=== PATIENT | female | born 1980 | race Caucasian/White ===

== ENCOUNTER 2021-10-18 06:51 | Emergency (ER) | payer OTHER, MEDICAID, SELFPAY ==
[2021-10-18 07:01] VITALS: BP 146/105; PULSE 106; O2SAT 98
[2021-10-18 07:08] VITALS: BP 146/109; PULSE 107; RESP 18; TEMP 36.4; O2SAT 98
--- NOTE | 2021-10-18 07:08 | ED_ITS ---
HPI - General Adult General Chief complaint: Upper Respiratory Symptoms Stated complaint: headache, coughing, sinus, vomiting Time Seen by Provider: 10/18/21 06:55 History of Present Illness HPI narrative: 41-year-old woman with history of hypertension, fibromyalgia prior gastric sleeve surgery in July of this year presents with upper respiratory symptoms. Symptoms started essentially yesterday with sinus fullness wondering if she was perhaps developing a sinus infection. She done developed fever, headache and a bit of diarrhea and last night began vomiting. Her daughter has similar symptoms. She does not report cough, chest pain, significant dyspnea. She is significantly fatigued with myalgias and overall body aches. She has not yet had COVID but states she is vaccinated. Requesting a COVID test Related Data Previous Rx's Medication Instructions Recorded nirmatrelvir 150 mg x 2-ritonavir See Rx Instructions .ROUTE 10/18/21 100 mg tablet (EUA) (Paxlovid .COMPLEX #30 tab (EUA)) ondansetron 4 mg disintegrating 4 mg PO Q8H PRN #14 tab 10/18/21 tablet Allergies Allergy/AdvReac Type Severity Reaction Status Date / Time gabapentin Allergy Verified 10/18/21 07:06 Latex, Natural Rubber Allergy Verified 10/18/21 07:06 Penicillins Allergy Verified 10/18/21 07:06 pregabalin [From Lyrica] Allergy Verified 10/18/21 07:06 Review of Systems Review of Systems Narrative: Remainder of complete review of systems is otherwise unremarkable except for th at included in the HPI. Patient History Medical History (Updated 10/18/21 @ 07:49 by Jaki Hoyt MD) Fibromyalgia Hypertension Social History Smoking Status: Current some day smoker Exam Initial Vital Signs Initial Vital Signs: Vital Signs Pulse Rate 106 H 10/18/21 07:01 Blood Pressure 146/105 H 10/18/21 07:01 Pulse Oximetry 98 10/18/21 07:01 General: Fatigued appearing with circles under her eyes but Able to give a complete and coherent history. Well-nourished well-developed HEENT: Moist mucous membranes, normal sclera with reactive pupils, Respiratory: Lungs are clear to auscultation, no wheezing no rales no rhonchi. Full and symmetrical air movement Cardiac: Regular rate and rhythm no murmurs no bruits Abdomen: Soft, mild tenderness in epigastrium, good bowel tones, no flank pain Skin: Slightly pale but otherwise Warm and dry, no rashes Neurologic: Grossly neurologically intact with no obvious asymmetries or abnormalities Extremities: No trauma, well perfused Psych: Cooperative, appropriate insight and affect Course Orders Ordered: ED Orders 10/18/21 07:10 COVID19 -Nasal RAPID/Pre-Proc Stat Discontinued Medications Ondansetron HCl (Ondansetron 4 Mg Odt) 4 mg SL NOW ONE Stop: 10/18/21 07:08 Last Admin: 10/18/21 07:14 Dose: 4 mg Documented by: VIRY Vital Signs Vital signs: Vital Signs - 8 hr 10/18/21 07:01 10/18/21 07:08 10/18/21 07:30 Temperature 97.5 F L Pulse Rate 106 H 107 H 99 H Respiratory Rate 18 Blood Pressure 146/105 H 146/109 H Pulse Oximetry 98 98 97 Medical Decision Making Lab Data Labs: Lab Results 10/18/21 Range/Units 07:10 SARS-CoV-2 (PCR) Positive H (Negative) MDM Narrative Medical decision making narrative: 41-year-old woman with headache nausea vomiting not hypoxic minimal cough she is vaccinated against COVID and is COVID positive today. She declines IV hydration after her nausea and vomiting. She is interested in Paxlovid. Her routine medications include cyclobenzaprine and tramadol both of which do not significantly interactive and do not need to be dramatically altered. Prescription is written for paxlovid as well as ondansetron and she will be discharged home Discharge Plan Departure Patient Disposition: Home Clinical Impression: COVID-19 Instructions: DI for COVID-19 (Suspected or Confirmed ) Activity Restrictions/Additional Instructions: Thank you for coming in today You do have COVID. You likely have a milder casing her daughter because you are vaccinated. I have given you a prescription for Zofran to help with nausea I have also given you a dose for Paxlovid, the antiviral medications that can help prevent hospitalization with COVID. If you find that you are having uncontrolled nausea, your more short of breath or develop additional complications, please return to the ER I hope you feel better quickly Prescriptions: New ondansetron 4 mg tablet,disintegrating 4 mg PO Q8H PRN (Reason: nausea and vomiting) Qty: 14 0RF Paxlovid (EUA) 150 mg x 2- 100 mg tablet See Rx Instructions .ROUTE .COMPLEX Qty: 30 0RF Rx Instructions: orally per package directions
[2021-10-18] MEDS: ONDANSETRON 4 MG ODT SL (07:14)
[2021-10-18 07:30] VITALS: PULSE 99; O2SAT 97
[2021-10-18 07:32] LABS: COVID19 -Nasal RAPID POSITIVE (Negative)
== END 2021-10-18 08:08 | disposition home or self-care (01) ==
PROVIDERS: Emergency Provider Emergency Medicine
DX: U07.1 COVID-19 (principal)
CPT/HCPCS: 87635; 99282; 99283; C9803

== ENCOUNTER → 2022-04-14 11:28 | Outpatient (CLI) | payer OTHER, MEDICAID, SELFPAY ==
--- NOTE | 2022-04-14 11:30 | DI.RAD.S_ITS ---
PROCEDURE: XR LUMBAR SPINE MIN 4V INDICATIONS: Lumbar spondylosis TECHNIQUE: 5 views of the lumbar spine acquired, including flexion and extension views. COMPARISON: None. FINDINGS: Bones: 5 nonrib-bearing vertebrae are present. There is normal bony alignment. No vertebral body compression fractures. No suspicious bony lesions. Lower lumbar spine disc space narrowing hypertrophic facet joints. Oblique images show no evidence pars defects. Surgical clips present in the right upper quadrant Soft tissues: Overlying bowel gas pattern is normal. No suspicious soft tissue calcifications. IMPRESSION: Mild lower lumbar spine degenerative disc disease and arthropathy Approved by: Bryon Valentin M.D. on 04/14/2022 at 17:56
== END ==
PROVIDERS: PCP Family Medicine; Referring Provider Anesthesiology; Visit Provider Anesthesiology
DX: M54.50 Low back pain, unspecified (principal); M47.816 Spondylosis without myelopathy or radiculopathy, lumbar region; G89.29 Other chronic pain
CPT/HCPCS: 72110; 99214

== ENCOUNTER → 2022-05-05 13:32 | Outpatient (CLI) | payer OTHER, MEDICAID, SELFPAY ==
--- NOTE | 2022-05-05 13:33 | DI.MRI.S_ITS ---
PROCEDURE: MR LUMBAR SPINE WO CON INDICATIONS: Low back pain TECHNIQUE: Noncontrast sagittal T1 spin echo and T2 fast echo, sagittal STIR, and T2 fast spin echo through the lumbar spine. In cases with scoliosis, additional coronal T2 fast spin echo may be performed. COMPARISON: None. FINDINGS: Image quality: Excellent. Alignment and Curvature: There is normal bony alignment. Bone Marrow: Marrow is of normal overall signal. No acute vertebral body compression fractures. Spinal Cord: Conus medullaris terminates at the L1 level. Visualized cord demonstrates normal signal and size. Paraspinous Soft Tissues: No paravertebral masses. T12-L1: Normal appearance. L1-L2: Normal appearance. L2-L3: Disc height is preserved. No canal stenosis. No left foraminal narrowing. Mild right neural foraminal stenosis. L3-L4: Mild disc desiccation and height loss. There is a left lateral broad-based disc bulge with resultant moderate canal stenosis. This bulge abuts the exiting nerve root at this level (series 6/image 5). L4-L5: Severe disc desiccation and height loss. Modic type I changes are present. Patient is status post laminectomy. Mild facet sclerosis. There is a central, broad-based posterior disc bulge. A posterior focal high-intensity zone is present. No canal stenosis. Mild bilateral foraminal stenosis. L5-S1: Normal appearance. IMPRESSION: 1. L3-4 left lateral broad-based disc bulge which abuts the exiting nerve root at this level and results in moderate neural foraminal stenosis. 2. Severe disc desiccation, height loss, and Modic type I changes at L4-5 with posterior broad-based disc bulge. Patient is status post laminectomy at this level. No resultant canal stenosis. 3. Posterior annular fibrosis tear is present at L4-5. Dictated by: Sheridan Shahid M.D. on 05/05/2022 at 16:40 Approved by: Sheridan Shahid M.D. on 05/05/2022 at 16:45
== END ==
PROVIDERS: PCP Family Medicine; Referring Provider Anesthesiology; Visit Provider Anesthesiology
DX: M47.816 Spondylosis without myelopathy or radiculopathy, lumbar region (principal); M51.36 Other intervertebral disc degeneration, lumbar region
CPT/HCPCS: 72148

== ENCOUNTER → 2022-07-06 15:16 | Outpatient (CLI) | payer OTHER, MEDICAID, SELFPAY ==
--- NOTE | 2022-07-06 15:17 | DI.RAD.S_ITS ---
PROCEDURE: XR CHEST 2V INDICATIONS: Left rib pain TECHNIQUE: 2 views of the chest were acquired. COMPARISON: None. FINDINGS: Surgical changes and devices: None. Lungs and pleura: Lungs are clear. No pleural effusions or pneumothorax. Mediastinum: Mediastinal contours are normal. Heart size is normal. Bones and chest wall: No suspicious bony abnormalities. Soft tissues appear unremarkable. IMPRESSION: No acute finding. Dictated by: Yasir Broderick M.D. on 07/06/2022 at 19:47 Approved by: Yasir Broderick M.D. on 07/11/2022 at 18:36
== END ==
PROVIDERS: PCP Family Medicine; Referring Provider Anesthesiology; Visit Provider Anesthesiology
DX: M54.6 Pain in thoracic spine (principal); M51.16 Intervertebral disc disorders with radiculopathy, lumbar region; M54.50 Low back pain, unspecified; M53.3 Sacrococcygeal disorders, not elsewhere classified; G89.29 Other chronic pain
CPT/HCPCS: 71046; 99214

== ENCOUNTER 2022-10-20 19:45 | Emergency (ER) | payer OTHER, MEDICAID, SELFPAY ==
[2022-10-20 19:48] VITALS: BP 187/114; PULSE 85; RESP 16; TEMP 36.8; O2SAT 99; BMI 35.2
[2022-10-20 20:19] LABS: Appearance Urine UA CLOUDY; Bilirubin Urine UA NEGATIVE (NEGATIVE); Color Urine UA YELLOW; Glucose Urine UA NEGATIVE (Negative); Ketones Urine UA 2+ (NEGATIVE); Leukocyte Esterase Urine UA 3+ (NEGATIVE); Nitrite Urine UA POSITIVE (Negative); Occult Blood Urine UA 3+ (Negative); Protein Urine UA 2+ (Negative); Specific Gravity Urine UA 1.015 (1.000-1.035); Urobilinogen Urine UA 0.2 E.U./dL (0.2)
[2022-10-20 20:23] LABS: Add Manual Diff / Slide Review NO; Basophils Absolute Auto 0 /uL (0-100); Basophils Percent Auto 0.2 % (0-2); Eosinophils Absolute Auto 0 /uL (0-450); Eosinophils Percent Auto 0.1 % (2-4); Hematocrit 44.2 % (36-46); Hemoglobin 15.4 g/dL (12.0-16.0); Lymphocytes Absolute Auto 2500 /uL (1100-4500); Lymphocytes Percent Auto 12.8 % (25-40); Mean Corpuscular HGB Conc 34.9 % (30-36); Mean Corpuscular Hemoglobin 28.8 PG (26-34); Mean Corpuscular Volume 82.7 fL (80-100); Monocytes Absolute Auto 700 /uL (0-900); Monocytes Percent Auto 3.7 % (3-14); Neutrophils Absolute Auto 16300 /uL (1500-7000); Neutrophils Percent Auto 83.2 % (50-75); Platelet Count 356 X10^3/uL (150-400); Red Blood Cell Count 5.35 X10^6/uL (4.0-5.2); Red Cell Distribution Width 13.2 % (11.6-14.8); White Blood Cell Count 19.5 X10^3/uL (4.5-11.0)
[2022-10-20 20:26] LABS: Alanine Aminotransferase 17 IU/L (<35); Albumin 4.9 g/dL (3.5-5.0); Albumin Globulin Ratio 1.4 (1.0-2.8); Alkaline Phosphatase 86 U/L (38-126); Amorphous Sediment Urine 1+; Aspartate Aminotransferase 23 IU/L (14-36); BUN Creatinine Ratio 13.6 (6-22); Bacteria Urine Moderate (10-30); Bilirubin Total 1.3 mg/dL (0.2-1.3); Blood Urea Nitrogen 9 mg/dL (7-17); Calcium 9.7 mg/dL (8.4-10.2); Carbon Dioxide 22 mmol/L (22-32); Chloride 102 mmol/L (98-107); Culture Indicated Urine Specimen Cultured; Estimated Glomerular Filt Rate > 60 mL/min (>60); Globulin 3.6 g/dL (1.7-4.1); Glucose 119 mg/dL (70-100); Potassium 4.6 mmol/L (3.4-5.1); RBC Urine 5-10/HPF (0-5/HPF); Sodium 136 mmol/L (137-145); Total Protein 8.5 g/dL (6.3-8.2); WBC Urine 10-30/HPF (0-5/HPF)
[2022-10-20 20:27] LABS: HEMOLYSIS 79 (0-50)
--- NOTE | 2022-10-20 20:44 | DI.CT.S_ITS ---
PROCEDURE: CT KIDNEY URETER BLADDER (KUB) INDICATIONS: hx of kidney stones, right flank pain TECHNIQUE: Axial sections were acquired from the lung bases to the pubic symphysis. Coronal and sagittal reformats were performed. For radiation dose reduction, the following was used: automated exposure control, adjustment of mA and/or kV according to patient size. COMPARISON: [facility], CT, CT ABDOMEN PELVIS WITH CONTRAST, 09/13/2022, 11:17. FINDINGS: Image quality: Excellent. Lung bases: There is minimal atelectasis. Heart: Heart is normal in size. URINARY: Right Kidney and Ureter: No stones or hydronephrosis. No hydroureter. There is mild periureteral fat stranding. Left Kidney and Ureter: No stones or hydronephrosis. No hydroureter. Bladder: Normal wall thickness. No stones. ABDOMEN: Liver: Noncontrast evaluation of the liver demonstrates no discrete mass. Gallbladder: Surgically absent. Biliary ducts: No biliary ductal dilatation. Pancreas: Unremarkable. Spleen: Normal in size. Adrenal Glands: No adrenal nodules. Stomach and Bowel: Stomach, small bowel loops, and colon are normal in caliber and wall thickness. No pericecal inflammatory changes to suggest appendicitis. Peritoneum: No abnormal intraperitoneal fluid. No free air. Ventral Wall: No hernia. Abdominal Nodes: No retroperitoneal or mesenteric adenopathy by size criteria. Vessels: Aorta and inferior vena cava are normal in size. PELVIS: Pelvic Organs: The uterus is surgically absent. Pelvic Nodes: No enlarged lymph nodes. Miscellaneous: No inguinal hernias identified. Bones: Visualized osseous structures demonstrate no suspicious focal lesions. IMPRESSION: 1. Mild right periureteral fat stranding without hydronephrosis or hydroureter. No discrete obstructing stone visualized. The findings are nonspecific and the differential includes a recently passed stone or a urinary tract infection. 2. No pericecal inflammatory changes to suggest appendicitis. Dictated by: Dawson Palacios M.D. on 10/20/2022 at 22:05 Approved by: Dawson Palacios M.D. on 10/20/2022 at 22:08
[2022-10-20 21:57] VITALS: BP 193/105; PULSE 69; RESP 18; O2SAT 99
[2022-10-20] MEDS: ONDANSETRON 4 MG ODT SL (22:01)
[2022-10-20 23:24] VITALS: PULSE 73; O2SAT 98
[2022-10-20 23:25] VITALS: BP 184/87; PULSE 72; O2SAT 99
[2022-10-20 23:30] VITALS: PULSE 72; O2SAT 97
[2022-10-20 23:31] VITALS: BP 159/87; PULSE 70; O2SAT 97
[2022-10-21] VITALS (7 sets, daily range): BP systolic 162–187; BP diastolic 86–95; PULSE 61–76; RESP 20; O2SAT 93–100
--- NOTE | 2022-10-21 00:05 | ED.FEMALEGU ---
HPI - Female Genitourinary General Chief complaint: Urogenital-Female Stated complaint: Thinks kidney stones Time Seen by Provider: 10/20/22 23:54 Source: patient Mode of arrival: Ambulatory History of Present Illness HPI Narrative: Patient here for right flank pain for on going for 3 days. Has had chills at home. Had syncopal episode today due to just feeling tired and weak. No injury. Patient has history of kidney stone and thought this might be the same but it hurts more. Painful with movement. Has had dysuria. History of hysterectomy Related Data Home Medications Medication Instructions Recorded Confirmed atorvastatin 20 mg tablet 20 mg PO BEDTIME 04/14/22 10/17/22 omeprazole 20 mg capsule,delayed 20 mg PO DAILY 09/26/22 10/17/22 release Previous Rx's Medication Instructions Recorded cyclobenzaprine 10 mg tablet 20 mg PO BEDTIME PRN muscle spasm 08/09/22 #20 tabs tramadol 50 mg tablet 100 mg PO BEDTIME PRN pain 08/09/22 inhibiting sleep #60 tabs quetiapine 25 mg tablet (Seroquel) 25 mg PO BEDTIME #90 tabs 09/23/22 cefpodoxime 200 mg tablet 200 mg PO BID #20 tabs 10/21/22 hydrocodone 5 mg-acetaminophen 325 1 tab PO Q6H PRN pain #12 tabs 10/21/22 mg tablet ondansetron 4 mg disintegrating 4 mg PO Q8H PRN nausea and 10/21/22 tablet vomiting #10 tabs Allergies Allergy/AdvReac Type Severity Reaction Status Date / Time bee venom protein (honey bee) Allergy Severe Anaphylaxis Verified 10/20/22 19:48 gabapentin Allergy Verified 10/20/22 19:48 Latex, Natural Rubber Allergy Verified 10/20/22 19:48 pregabalin [From Lyrica] Allergy Verified 10/20/22 19:48 lidocaine AdvReac Severe Vomiting Verified 10/20/22 19:48 procaine [From Novocain] AdvReac Severe Difficulty Verified 10/20/22 19:48 Breathing NSAIDS (Non-Steroidal AdvReac Verified 10/20/22 20:07 Anti-Inflamma Penicillins AdvReac Verified 10/21/22 00:02 penicillin Allergy Unknown Uncoded 10/17/22 10:51 Review of Systems Review of Systems Narrative: GENERAL: Positive chills, fatigue, malaise, fever, sweats. HEENT: negative sinus pain, ear pain, sore throat RESPIRATORY: negative dyspnea, cough CARDIOVASCULAR: negative chest pain, palpitations GASTROINTESTINAL: Pause nausea, vomiting, abdominal pain : Positive dysuria, frequency, negative hematuria MUSCULOSKELETAL: negative muscle or bony pain SKIN: negative rash, skin lesions NEUROLOGIC: negative weakness, numbness ROS Unobtainable: All systems reviewed & are unremarkable except as noted in HPI and below Patient History Medical History Chronic back pain Fibromyalgia Fibromyalgia Hypertension Lumbar spondylosis Pain aggravated by anxiety Sacrococcygeal disorders, not elsewhere classified Spondylosis without myelopathy or radiculopathy, lumbar region tobacco type: vaping alcohol intake frequency: holidays/special occasions only Substance Use Type: does not use Exam Narrative Exam Narrative: GENERAL: in no distress, not toxic not dyspneic HEAD: Normocephalic. EYES: Pupils equal round ENT: Mucous membranes moist. NECK: Trachea midline. CARDIOVASCULAR: Regular rate and rhythm without murmurs RESPIRATORY: Clear to auscultation. Breath sounds equal bilaterally. No wheezes, rales, or rhonchi. GASTROINTESTINAL: Abdomen soft, non-tender EXTREMITIES: No gross deformities. BACK: There is reproducible right CVA tenderness NEURO: AOx4. SKIN: Warm and dry PSYCH: Not anxious, is cooperative Initial Vital Signs Initial Vital Signs: Vital Signs Temperature 98.2 F 10/20/22 19:48 Pulse Rate 85 10/20/22 19:48 Respiratory Rate 16 10/20/22 19:48 Blood Pressure 187/114 H 10/20/22 19:48 Pulse Oximetry 99 10/20/22 19:48 Oxygen Delivery Method Room Air 10/20/22 19:48 Course Orders Ordered: Discontinued Medications Ceftriaxone Sodium 2,000 mg/ (Sodium Chloride) 100 mls @ 200 mls/hr IV NOW ONE Stop: 10/21/22 00:02 Last Infusion: 10/21/22 01:00 Dose: 0 mls/hr Documented By: Admin: 10/21/22 00:15 Dose: 200 mls/hr Documented By: FANI Morphine Sulfate (Morphine 4 Mg/Ml Inj) 4 mg IV NOW ONE Stop: 10/21/22 00:03 Last Admin: 10/21/22 00:14 Dose: 4 mg Documented By: FANI Ondansetron HCl (Ondansetron 4 Mg Odt) 4 mg SL NOW PRN PRN Reason: Nausea And Vomiting Last Admin: 10/20/22 22:01 Dose: 4 mg Documented By: Ondansetron HCl (Ondansetron 4 Mg/2 Ml Inj) 4 mg IV NOW PRN PRN Reason: Nausea And Vomiting Vital Signs Vital signs: Vital Signs - 8 hr 10/20/22 21:57 10/20/22 23:24 10/20/22 23:25 Pulse Rate 69 73 Respiratory Rate 18 Blood Pressure 193/105 H 184/87 H Pulse Oximetry 99 98 Oxygen Delivery Method Room Air 10/20/22 23:25 10/20/22 23:30 10/20/22 23:31 Pulse Rate 72 72 70 Respiratory Rate Blood Pressure Pulse Oximetry 99 97 97 Oxygen Delivery Method 10/20/22 23:31 10/21/22 00:00 10/21/22 00:01 Pulse Rate 75 Respiratory Rate Blood Pressure 159/87 H 187/89 H Pulse Oximetry 98 Oxygen Delivery Method 10/21/22 00:01 10/21/22 00:30 10/21/22 00:31 Pulse Rate 74 73 70 Respiratory Rate Blood Pressure Pulse Oximetry 99 100 100 Oxygen Delivery Method 10/21/22 00:31 10/21/22 01:00 10/21/22 01:01 Pulse Rate 76 61 Respiratory Rate Blood Pressure 178/86 H Pulse Oximetry 93 100 Oxygen Delivery Method 10/21/22 01:01 Pulse Rate Respiratory Rate 20 Blood Pressure 183/87 H Pulse Oximetry Oxygen Delivery Method MDM - Female Genitourinary Lab Data 10/20/22 20:00 10/20/22 20:00 Labs: Lab Results 10/20/22 10/20/22 10/20/22 Range/Units 20:00 20:00 20:00 WBC 19.5 H (4.5-11.0) X10^3/uL RBC 5.35 H (4.0-5.2) X10^6/uL Hgb 15.4 (12.0-16.0) g/dL Hct 44.2 (36-46) % MCV 82.7 (80-100) fL MCH 28.8 (26-34) PG MCHC 34.9 (30-36) % RDW 13.2 (11.6-14.8) % Plt Count 356 (150-400) X10^3/uL Neut % (Auto) 83.2 H (50-75) % Lymph % (Auto) 12.8 L (25-40) % [place] % (Auto) 3.7 (3-14) % Eos % (Auto) 0.1 L (2-4) % Baso % (Auto) 0.2 (0-2) % Neut # (Auto) 86782 H (6810-7566) /uL Lymph # (Auto) 2500 (0983-0241) /uL [place] # (Auto) 700 (0-900) /uL Eos # (Auto) 0 (0-450) /uL Baso # (Auto) 0 (0-100) /uL Sodium 136 L (137-145) mmol/L Potassium 4.6 (3.4-5.1) mmol/L Chloride 102 (98-107) mmol/L Carbon Dioxide 22 (22-32) mmol/L BUN 9 (7-17) mg/dL Creatinine 0.66 (0.52-1.04) mg/dL Estimated GFR > 60 (>60) mL/min BUN/Creatinine Ratio 13.6 (6-22) Glucose 119 H (70-100) mg/dL Lactate (0.7-2.1) mmol/L Calcium 9.7 (8.4-10.2) mg/dL Total Bilirubin 1.3 (0.2-1.3) mg/dL AST 23 (14-36) IU/L ALT 17 (<35) IU/L Alkaline Phosphatase 86 (38-126) U/L Total Protein 8.5 H (6.3-8.2) g/dL Albumin 4.9 (3.5-5.0) g/dL Globulin 3.6 (1.7-4.1) g/dL Albumin/Globulin Ratio 1.4 (1.0-2.8) Procalcitonin (<0.5) ng/mL Urine Color Yellow Urine Appearance Cloudy Urine pH 6.0 (4.5-8.0) Ur Specific [place] 1.015 (1.000-1.035) Urine Protein 2+ H (Negative) Urine Glucose (UA) Negative (Negative) g/dL Urine Ketones 2+ H (NEGATIVE) Urine Occult Blood 3+ H (Negative) Urine Nitrate Positive H (Negative) Urine Bilirubin Negative (NEGATIVE) Urine Urobilinogen 0.2 (0.2) E.U./dL Ur Leukocyte Esterase 3+ H (NEGATIVE) Urine RBC 5-10/hpf H (0-5/HPF) Urine WBC 10-30/hpf H (0-5/HPF) Amorphous Sediment 1+ Urine Bacteria Moderate (10-30) H (None) Ur Culture Indicated? Specimen cultured 10/20/22 10/20/22 Range/Units 20:00 20:00 WBC (4.5-11.0) X10^3/uL RBC (4.0-5.2) X10^6/uL Hgb (12.0-16.0) g/dL Hct (36-46) % MCV (80-100) fL MCH (26-34) PG MCHC (30-36) % RDW (11.6-14.8) % Plt Count (150-400) X10^3/uL Neut % (Auto) (50-75) % Lymph % (Auto) (25-40) % [place] % (Auto) (3-14) % Eos % (Auto) (2-4) % Baso % (Auto) (0-2) % Neut # (Auto) (5987-9159) /uL Lymph # (Auto) (5009-4932) /uL [place] # (Auto) (0-900) /uL Eos # (Auto) (0-450) /uL Baso # (Auto) (0-100) /uL Sodium (137-145) mmol/L Potassium (3.4-5.1) mmol/L Chloride (98-107) mmol/L Carbon Dioxide (22-32) mmol/L BUN (7-17) mg/dL Creatinine (0.52-1.04) mg/dL Estimated GFR (>60) mL/min BUN/Creatinine Ratio (6-22) Glucose (70-100) mg/dL Lactate 0.7 (0.7-2.1) mmol/L Calcium (8.4-10.2) mg/dL Total Bilirubin (0.2-1.3) mg/dL AST (14-36) IU/L ALT (<35) IU/L Alkaline Phosphatase (38-126) U/L Total Protein (6.3-8.2) g/dL Albumin (3.5-5.0) g/dL Globulin (1.7-4.1) g/dL Albumin/Globulin Ratio (1.0-2.8) Procalcitonin 0.04 (<0.5) ng/mL Urine Color Urine Appearance Urine pH (4.5-8.0) Ur Specific [place] (1.000-1.035) Urine Protein (Negative) Urine Glucose (UA) (Negative) g/dL Urine Ketones (NEGATIVE) Urine Occult Blood (Negative) Urine Nitrate (Negative) Urine Bilirubin (NEGATIVE) Urine Urobilinogen (0.2) E.U./dL Ur Leukocyte Esterase (NEGATIVE) Urine RBC (0-5/HPF) Urine WBC (0-5/HPF) Amorphous Sediment Urine Bacteria (None) Ur Culture Indicated? Urine Dip Bedside Urine Glucose Negative Bedside Urine Bilirubin - Negative Bedside Urine Ketone ++ 40 Urine Specific [place] 1.015 Bedside Urine Occult Blood +++ Bedside Urine pH 6 Bedside Urine Protein + 30 Bedside Urine Urobilinogen - Negative Bedside Urine Nitrite + Positive Bedside Urine Leukocytes +++ 500 Esterase MDM Narrative Medical decision making narrative: Patient here for right flank pain for on going for 3 days. Has had chills at home. Had syncopal episode today due to just feeling tired and weak. No injury. Patient has history of kidney stone and thought this might be the same but it hurts more. Painful with movement. Has had dysuria. History of hysterectomy After history and exam CBC CMP urinalysis lactic acid procalcitonin blood culture CT KUB Rocephin Zofran normal saline morphine MDM CC: Right flank pain Complicating co-morbidities: History of kidney stones Data collected from: Patient Medical records reviewed: No recent visits for this complaint Differential considered: Includes but not limited to kidney stone pyelonephritis UTI appendicitis Exam documented above, pertinent findings include: Right CVA tenderness Lab Test results independently reviewed as above. Pertinent findings: WBC 19.5 GFR greater than 60 urinalysis positive ketones positive nitrate positive leukocyte esterase WBC 10-30 procalcitonin 0.04 lactic acid 0.7 Imaging studies independently reviewed: CT KUB mild right periureteral fat stranding without hydronephrosis or hydroureter. No obstructing stone visualized. Consultations: 12:00 a.m., spoke with hospitalist, dr resendez, will see patient to evaluate for admit Treatments: Morphine normal saline Zofran Rocephin Re-evaluations: 1:20 a.m.. Hospitalist at seen patient for re-evaluation, at this time she states she feels much better. Pain is controlled. She has eaten food here. She does not want to be admitted in the hospital. She states her is here from the appointment for only 1 week. She is not seen him in 2 years. Return precautions reviewed with her. We will keep her until later this morning as she is had pain medication. 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 Patient has received Rocephin. 3:57 a.m.. Patient desires discharge home. She has been sleeping since hospitalist saw patient. Patient has been here for 8 hours. Approach for discharge home as patient did receive morphine earlier in the night. However it has been 4 hours since morphine given. Patient has steady gait, clear speech, no ataxia. She desires discharge home, return precautions reviewed with her. Discussion: Appropriate for discharge home. Pain is controlled. Patient would like to try outpatient antibiotics. Laboratory studies reviewed with her, return precautions reviewed with her. She desires discharge home. Lactic acid and procalcitonin is reassuring. Diagnosis: Acute pyelonephritis Discharge Plan Departure Patient Disposition: Home Clinical Impression: Acute pyelonephritis Instructions: DI for Kidney Infection Activity Restrictions/Additional Instructions: See family doctor within a week for re-evaluation. You have been diagnosed with pyelonephritis/kidney infection. Return immediately if worse if any questions or concerns. Prescription antibiotics have been sent to your pharmacy to continue today, be sure to complete full course. Call provided primary care referral phone number to establish family doctor. Call [phone]. No driving or operating machinery when taking prescribed pain medication Insurance will not cover Vantin for more than 7 days. Switched to Bactrim DS 1 tablet po BID x 10 days #[address] Jimenez. Prescriptions: New cefpodoxime 200 mg tablet 200 mg PO BID Qty: 20 0RF Rx Instructions: must administer with a meal/food hydrocodone-acetaminophen 5-325 mg tablet 1 tab PO Q6H PRN (Reason: pain) Qty: 12 0RF ondansetron 4 mg tablet,disintegrating 4 mg PO Q8H PRN (Reason: nausea and vomiting) Qty: 10 0RF No Action tramadol 50 mg tablet 100 mg PO BEDTIME PRN (Reason: pain inhibiting sleep) Qty: 60 2RF cyclobenzaprine 10 mg tablet 20 mg PO BEDTIME PRN (Reason: muscle spasm) Qty: 20 2RF Hold Instructions: not to be used as along term med quetiapine [Seroquel] 25 mg tablet 25 mg PO BEDTIME Qty: 90 0RF omeprazole 20 mg capsule,delayed release(DR/EC) 20 mg PO DAILY Patient Comments: TAKE ONE CAPSULE BY MOUTH ONE TIME DAILY for reflux symptoms atorvastatin 20 mg tablet 20 mg PO BEDTIME Patient Comments: take 1 tablet by mouth once daily Referrals: Razia Sahu DO [Primary Care Provider] - Stand Alone Forms: Patient Portal/API
[2022-10-21 00:07] LABS: Lactate (Lactic Acid) 0.7 mmol/L (0.7-2.1)
[2022-10-21] MEDS: MORPHINE 4 MG/ML INJ IV (00:14)
[2022-10-21] MEDS: cefTRIAXone 2,000 MG in SODIUM CHLORIDE 0.9% 100 ML 200 MG IV (00:15)
[2022-10-21 00:24] LABS: Procalcitonin 0.04 ng/mL (<0.5)
== END 2022-10-21 04:04 | disposition home or self-care (01) ==
PROVIDERS: Emergency Provider Emergency Medicine; PCP Family Medicine
DX: N10 Acute pyelonephritis (principal); R55 Syncope and collapse
CPT/HCPCS: 36415; 74176; 80053; 81001; 81003; 83605; 84145; 85025; 87040; 87077; 87086; 87186; 96365; 96375; 99284; J0696; J2270

== ENCOUNTER → 2022-11-04 11:14 | Outpatient (CLI) | payer OTHER, MEDICAID, SELFPAY | PROVIDERS: PCP Family Medicine; Visit Provider Nurse Practitioner Family | DX: N10 Acute pyelonephritis (principal) | CPT/HCPCS: 87086 ==

== ENCOUNTER → 2022-11-04 11:23 | Outpatient (CLI) | payer OTHER, MEDICAID, SELFPAY ==
[2022-11-04 11:47] LABS: Hemoglobin 14.2 g/dL (12.0-16.0); Mean Corpuscular HGB Conc 35.4 % (30-36); Mean Corpuscular Hemoglobin 29.4 PG (26-34); Platelet Count 297 X10^3/uL (150-400); Red Blood Cell Count 4.81 X10^6/uL (4.0-5.2); Red Cell Distribution Width 12.8 % (11.6-14.8); White Blood Cell Count 8.2 X10^3/uL (4.5-11.0)
[2022-11-04 12:22] LABS: BUN Creatinine Ratio 9.7 (6-22); Blood Urea Nitrogen 7 mg/dL (7-17); Calcium 9.1 mg/dL (8.4-10.2); Carbon Dioxide 26 mmol/L (22-32); Chloride 102 mmol/L (98-107); Estimated Glomerular Filt Rate > 60 mL/min (>60); Glucose 96 mg/dL (70-100); HEMOLYSIS < 15 (0-50); Potassium 4.1 mmol/L (3.4-5.1); Sodium 136 mmol/L (137-145)
== END ==
PROVIDERS: PCP Family Medicine; Referring Provider Nurse Practitioner Family; Visit Provider Nurse Practitioner Family
DX: N10 Acute pyelonephritis (principal)
CPT/HCPCS: 36415; 80048; 81002; 85027; 87086

== ENCOUNTER 2022-11-23 08:04 | Outpatient (CLI) | payer OTHER, MEDICAID, SELFPAY ==
--- NOTE | 2022-11-23 08:05 | DI.RAD.S_ITS ---
PROCEDURE: PAIN L/SI FACET INJ/BLK 1STL INDICATIONS: LUMBAR SPONDYLOSIS COMPARISON: None. FINDINGS: Fluoroscopic spot filming was performed to verify placement of spinal needles at the mid/ lower lumbar level(s), as labeled on the films. Appropriate location(s) of the needle tip(s) was confirmed by injection of iodinated contrast. IMPRESSION: Needle placement as above. Dictated by: Teodora Kinney M.D. on 11/23/2022 at 11:41 Transcribed by: NANCY on 11/23/2022 at 11:41 Approved by: Teodora Kinney M.D. on 11/23/2022 at 16:15
[2022-11-23 08:10] VITALS: BP 144/89; PULSE 84; RESP 18; TEMP 36.1; O2SAT 100
[2022-11-23 08:54] VITALS: BP 189/104; PULSE 62; RESP 16; O2SAT 99
[2022-11-23] MEDS: BUPIVACAINE 0.5% (PF) 10 ML VIAL 20 ML INJ (08:55)
[2022-11-23] MEDS: IOPAMIDOL 15 ML VIAL 3 ML INJ (08:56)
[2022-11-23 08:59] VITALS: BP 174/106; PULSE 77; RESP 12; O2SAT 100
[2022-11-23 09:04] VITALS: BP 137/87; PULSE 79; RESP 13; O2SAT 100
[2022-11-23 09:07] VITALS: BP 154/101; PULSE 60; RESP 16; O2SAT 99
--- NOTE | 2022-11-23 09:09 | P.PCN_ITS ---
Date/Time/Diagnoses Date of procedure: 11/23/22 Time of procedure: 08:30 Procedure Notes Physician: Johnny Melendrez Total Fluoroscopy time (seconds): 17 Total sedation minutes: 0 Procedure in detail & Post-procedure care: Bilateral L3,4,5 Lumbar Medial Branch Blocks Indications: Daphnie is presenting for treatment of lumbar spondylosis with low back pain. Preoperative diagnosis: Bilateral lumbar spondylosis Postoperative diagnosis: Same Pre-procedure History: Patient demonstrates today moderate to severe non- radicular back pain without neurologic deficit aggravated by hyperextension yes Back pain greater than leg pain? yes Patient today has tenderness over the suspected joint(s) yes History of post-traumatic injury? no Hypertrophic arthropathy yes Back pain associated with suspected motion segment instability, hypermobility or pseudoarthrosis no Pre-testing pain score (VAS): 8/10 Focused Examination: Ax3 Mood and affect are normal Vital Signs: VSS Consent: Following review of allergies and potential side effects/complications, including, but not necessarily limited to, infection, allergic reaction, local tissue breakdown, stroke, temporary or permanent nerve injury, paralysis, and possible , the patient indicated that they understood and agreed to proceed.? An informed consent document was signed by the patient, witnessed by a nurse and placed in the patient's chart.? Additionally, other treatment options including medications and physical therapy were reviewed with the patient. All questions were answered. Site was then marked. Anesthesia: Local Position: Prone Monitoring: NIBP, Pulse oximetry, 3 lead EKG Needle used: 25G 3.5 inch spinal needle Contrast: Isovue 300M Injectate: 0.5% bupivacaine 1 mL per site Procedure: The patient was brought into the procedure room and positioned into the prone position. Skin was prepped with a Chloraprep solution, allowed to air dry, and then draped in sterile fashion.? The right L4-5 and L5-S1 facet joints were visually identified with fluoroscopy. Lidocaine 1% was used to anesthetize the skin over each target destination with a 25ga needle. A 25 ga, 3.5 inch spinal needle was advanced to the location of the medial branch at the junction of the superior articular process and the transverse process at L3,4,5 using intermittent fluoroscopy in the AP view. Isovue 300M contrast 0.2ml was injected at each level outlining the medial borders for each level and the base of the SAP of the sacrum in the AP and lateral views. There was no evidence of vascular or intrathecal uptake. The above injectate was slowly injected at each target destination. The left L4-5 and L5-S1 facet joints were visually identified with fluoroscopy. Lidocaine 1% was used to anesthetize the skin over each target destination with a 25ga needle. A 22 ga, 3.5 inch spinal needle was advanced to the location of the medial branch at the junction of the superior articular process and the transverse process at L3,4,5 using intermittent fluoroscopy in the AP view. Isovue 300M contrast 0.2ml was injected at each level outlining the medial borders for each level and the base of the SAP of the sacrum in the AP and lateral views. There was no evidence of vascular or intrathecal uptake. The above injectate was slowly injected at each target destination. At the end of the procedure the needles were withdrawn and Band-Aids were applied for a dress ing. At the end of the procedure the needles were withdrawn and Band-Aids were applied for a dressing. Post Procedure: Patient was taken to the recovery and monitored. The patient was provided a Pain Log to continue to record the patient's response to the target- specific procedure prior to the patient's follow-up visit with the referring physician. Patient was stable upon discharge. Detailed post procedure instructions were provided. Patient was asked to call in the event of worsening pain, fever, weakness, numbness or bladder or bowel incontinence. Postoperatively, today patient demonstrates the following changes with hyperextension and with tenderness over the suspected joint(s). Provacative testing using the Perez's facet loading test Right side Left side Directly before the block ?VAS (0-10) = 8/10 VAS (0-10) = 8/10 5 minutes after the block VAS (0-10) = 4/10 VAS (0-10) = 4/10 Percentage relief obtained with this diagnostic block 50% 50% Any improved physical functioning directly after the blocks? Range of motion Based on the medial branches blocked today, if the patient meets insurance criteria for radiofrequency, the treatment should result in the denervation of the bilateral L4-5 and L5-S1 facet joint nerves. We would expect to denervate a total of 4 facets during the radiofrequency ablation.
== END 2022-11-23 09:13 | disposition home or self-care (01) ==
LOC: RAD 08:05
PROVIDERS: PCP Family Medicine; Referring Provider Anesthesiology; Visit Provider Anesthesiology
DX: M47.816 Spondylosis without myelopathy or radiculopathy, lumbar region (principal)
CPT/HCPCS: 64493; 64494

== ENCOUNTER → 2023-02-03 18:18 | Outpatient (CLI) | payer OTHER, MEDICAID, SELFPAY | PROVIDERS: PCP Family Medicine; Visit Provider Physician Assistant | DX: M54.9 Dorsalgia, unspecified (principal) | CPT/HCPCS: 81002; 87086 ==

== ENCOUNTER → 2023-10-11 14:08 | Outpatient (CLI) | payer OTHER, SELFPAY ==
--- NOTE | 2023-10-11 14:10 | DI.RAD.S_ITS ---
PROCEDURE: XR SHOULDER RT MIN 2V INDICATIONS: right shoulder pain radiating into neck TECHNIQUE: 3 views of the shoulder were acquired. COMPARISON: None. FINDINGS: Bones: No fractures or dislocations. No suspicious bony lesions. Minimal degenerative changes at the right AC joint. Visualized ribs appear intact. Soft tissues: No suspicious soft tissue calcifications. IMPRESSION: No acute bony abnormality. Dictated by: Michael Bernard M.D. on 10/11/2023 at 14:58 Approved by: Michael Bernard M.D. on 10/11/2023 at 14:59
== END ==
PROVIDERS: PCP Nurse Practitioner Family; Referring Provider Family Medicine; Visit Provider Family Medicine
DX: M25.511 Pain in right shoulder (principal)
CPT/HCPCS: 73030